=== PATIENT | female | born 2000 | race Two or more races ===

== ENCOUNTER 2022-02-14 13:31 | Emergency (ER) | payer MEDICARE ==
[~2022-02-14] VITALS: Ht 157.5 cm; Wt 57.0 kg
[2022-02-14 13:37] VITALS: BP 113/61
== END 2022-02-14 16:25 | disposition home or self-care (01) ==
LOC: ER 13:31
DX: R19.03 Right lower quadrant abdominal swelling, mass and lump (principal)
CPT/HCPCS: 76705; 81025; 99284

== ENCOUNTER 2024-02-01 18:09 | Emergency (ER) | payer SELFPAY ==
[~2024-02-01] VITALS: Ht 152.4 cm; Wt 60.0 kg
[2024-02-01 18:35] VITALS: O2SAT 100
[2024-02-01] MEDS ORDERED: OCUFLX LEFTEYE (19:12)
[2024-02-01 19:33] VITALS: BP 125/60; PULSE 73; RESP 20; TEMP 98.1
== END 2024-02-02 00:21 | disposition home or self-care (01) ==
LOC: ER 18:09
DX: H10.9 Unspecified conjunctivitis (principal)
CPT/HCPCS: 99283